=== PATIENT | male | born 1945 | race Caucasian/White ===

== ENCOUNTER 2020-03-10 14:02 | Emergency (ER) | payer MEDICARE ==
[~2020-03-10] VITALS: Ht 177.8 cm; Wt 100.0 kg
[~2020-03-10 14:02] MED LIST: ASPIRIN 81 MG E81 MG PO; ELIQUIS5 MG PO; GLUCOTROL 5 MG T5 MG PO; HYDROCHLOROTHIA25 MG PO; MOBIC7.5 MG PO; NORCO 10/325 TA1 TA1 PO; PACERONE200 MG PO; PRAVACHOL80 MG PO; TOPROL XL25 MG PO; ZESTRIL40 MG PO; ZYLOPRIM300 MG PO
[2020-03-10 14:16] VITALS: BP 164/77; Ht 177.8 cm; Wt 100.0 kg
[2020-03-10] MEDS ORDERED: KEFLEX500 MG PO (16:26)
== END 2020-03-10 17:12 | disposition home or self-care (01) ==
LOC: D.ER 14:02
DX: S51.812A Laceration without foreign body of left forearm, initial encounter (principal); S59.912A Unspecified injury of left forearm, initial encounter; S81.802A Unspecified open wound, left lower leg, initial encounter; S51.002A Unspecified open wound of left elbow, initial encounter; W19.XXXA Unspecified fall, initial encounter; E11.9 Type 2 diabetes mellitus without complications; I10 Essential (primary) hypertension; I48.91 Unspecified atrial fibrillation; Z95.1 Presence of aortocoronary bypass graft; I25.10 Atherosclerotic heart disease of native coronary artery without angina pectoris

== ENCOUNTER → 2020-11-03 09:47 | Outpatient (CLI) | payer MEDICARE ==
[2020-03-10 14:16] VITALS: BMI 31.6
[~2020-11-03 09:47] MED LIST changes: +KEFLEX500 MG PO
== END | disposition home or self-care (01) ==
LOC: D.HCCECHO 09:47
PROVIDERS: ATTEND Internal Medicine Cardiovascular Disease
DX: I25.10 Atherosclerotic heart disease of native coronary artery without angina pectoris (principal)